=== PATIENT | female | born 1960 | race Caucasian/White ===

== ENCOUNTER 2020-05-20 08:07 | Outpatient (REF) | payer BC, SELFPAY ==
[2020-05-20 10:51] LABS: MANUAL DIFF FLAG NO
[2020-05-20 10:58] LABS: Basophils Percent Auto 0.7 % (0-2); Eosinophils Absolute Auto 0.1 X10*3/uL (0.0-0.4); Eosinophils Percent Auto 2.5 % (0-4); Hematocrit 42.1 % (37-47); Hemoglobin 13.8 g/dl (12.0-16.0); Imm Gran Abs Auto 0.01 X10*3/uL (0.00-0.03); Imm Gran Pct Auto 0.2 % (0.0-0.4); Lymphocytes Absolute Auto 1.9 X10*3/uL (1.2-4.9); Lymphocytes Percent Auto 35.1 % (20-40); Mean Corpuscular HGB Conc 32.8 g/dl (31.0-35.0); Mean Corpuscular Hemoglobin 32.5 pg (27.0-33.0); Mean Corpuscular Volume 99.3 fL (80-98); Mean Platelet Volume 11.1 fL (9.4-12.3); Monocytes Absolute Auto 0.6 X10*3/uL (0.1-1.2); Monocytes Percent Auto 10.7 % (2-11); Neutrophils Absolute Auto 2.8 X10*3/uL (2.0-8.3); Neutrophils Percent Auto 50.8 % (45-73); Platelet Count 264 X10*3/uL (160-400); Red Blood Count 4.24 X10*6/uL (4.20-5.50); Red Cell Distribution Width 13.2 % (11.0-16.0); White Blood Count 5.5 X10*3/uL (4.8-10.8)
[2020-05-20 11:41] LABS: Vitamin D 25-OH Total 49.4 ng/mL (>30)
[2020-05-20 11:42] LABS: Alanine Aminotransferase 22 U/L (0-31); Albumin Level 4.6 g/dL (3.5-5.0); Alkaline Phosphatase 70 U/L (39-117); Anion Gap 16 (12-20); Aspartate Amino Transferase 24 U/L (5-31); Bilirubin Total 0.8 mg/dL (0.0-1.0); Blood Urea Nitrogen 10 mg/dL (9-16); Calcium 9.2 mg/dL (8.4-10.2); Carbon Dioxide 25 mmol/L (22-29); Chloride 104 mmol/L (96-108); Cholesterol 256 mg/dL; Estimated Glomerular Filt Rate > 60; Glucose Fasting 90 mg/dL (60-99); HDL Cholesterol 68 mg/dL; LDL Cholesterol Calculated 163 mg/dl; Potassium 4.5 mmol/L (3.3-5.1); Sodium 140 mmol/L (135-145); Total Protein 7.1 g/dL (6.5-8.0); Triglycerides 127 mg/dL
== END 2020-05-20 08:08 | disposition home or self-care (01) ==
LOC: HO.10HDL 08:07
PROVIDERS: Visit Provider Internal Medicine
DX: E78.00 Pure hypercholesterolemia, unspecified (principal); E55.9 Vitamin D deficiency, unspecified
CPT/HCPCS: 36415; 80053; 80061; 82306; 85025

== ENCOUNTER 2021-05-02 11:17 | Outpatient (REF) | payer BC, SELFPAY ==
[2021-05-02 11:46] LABS: COVID-19 Test Negative (Negative)
== END 2021-05-02 11:18 | disposition home or self-care (01) ==
LOC: HO.LNP 11:17
PROVIDERS: PCP Internal Medicine; Visit Provider Internal Medicine
DX: Z20.822 Contact with and (suspected) exposure to COVID-19 (principal)
CPT/HCPCS: 87635

== ENCOUNTER 2021-05-11 10:21 | Outpatient (REF) | payer BC, SELFPAY ==
[2021-05-11 10:47] LABS: COVID-19 Test Negative (Negative); IDNOW Serial# 55D5AD1C
== END 2021-05-11 10:22 | disposition home or self-care (01) ==
LOC: HO.LNP 10:21
PROVIDERS: PCP Internal Medicine; Visit Provider Internal Medicine
DX: Z20.822 Contact with and (suspected) exposure to COVID-19 (principal)
CPT/HCPCS: 87635

== ENCOUNTER 2021-07-05 08:09 | Day surgery (SDC) | payer BC, SELFPAY ==
[2021-06-30 09:23] VITALS: BMI 24.5
[2021-07-05 08:39] VITALS: BP 132/75; PULSE 72; RESP 16; TEMP 36.7; O2SAT 98; BMI 23.8
--- NOTE | 2021-07-05 08:51 | HO.ANESPROP2 ---
HPI - Anesthesia Eval Consult details Narrative: Screening Colonoscopy [facility] Past Medical History Medical History (Updated 06/30/21 @ 09:11 by Rosie Multani, RN) Elevated cholesterol Low vitamin D level Family History Family history of problems with anesthesia: No Surgical History Surgical History (Updated 06/30/21 @ 09:20 by Rosie Multani, RN) Hx of colonoscopy History of Problems with Anesthesia: No Social History Social History Patient Tobacco Use Status: Never used Tobacco Use of substances other than those prescribed or required for medical reasons: No Advance Directives: No Advance Directives Information Provided: Yes Recently lost weight without trying: No Nutrition Risks: No Nutritional Risk Meds Allergies Allergy/AdvReac Type Severity Reaction Status Date / Time No Known Allergies Allergy Unverified 06/30/21 09:13 Active Medications: Current Medications Acetaminophen (Acetaminophen 325 Mg Tablet) 650 mg PO ONCE PRN PRN Reason: Pain, Mild (Pain Scale 1-3) Ondansetron HCl (Ondansetron Hcl 4 Mg/2 Ml Vial) 4 mg IVPUSH ONCE PRN PRN Reason: Nausea and Vomiting Home Medications Medication Instructions Recorded Confirmed Last Taken Type ascorbic acid (vitamin C) 250 mg 250 mg PO DAILY 06/30/21 06/30/21 Unknown History chewable tablet (Vitamin C) cholecalciferol (vitamin D3) 25 25 mcg PO DAILY 06/30/21 06/30/21 Unknown History mcg (1,000 unit) chewable tablet (Vitamin D3) multivitamin with minerals-folic 1 tab PO DAILY 06/30/21 06/30/21 Unknown History acid 200 mcg chewable tablet (Multivitamin Gummies) rosuvastatin 5 mg tablet 5 mg PO DAILY 06/30/21 06/30/21 Unknown History zinc 50 mg tablet 50 mg PO DAILY 06/30/21 06/30/21 Unknown History Exam Exam Date and Time: July 05, 2021 0851 Height,Weight and Vital Signs: Height 5 ft 7 in Weight 68.946 kg Last Vital Signs Temp 98.0 F 07/05/21 08:39 Pulse 72 07/05/21 08:39 Resp 16 07/05/21 08:39 BP 132/75 07/05/21 08:39 Pulse Ox 98 07/05/21 08:39 Airway Mallampati Class: II TM Dist: >3cm Neck ROM: Full Loose/Missing/Broken Teeth: No (poor dentition) Heart: rrr+s1s2 Lungs: cta b/l Assessment and Plan Assessment Anesthesia Assessment: Anesthesia Plan Discussed and Chart Reviewed Final Anesthetic Review Family History of Problems with Anesthesia: No History of Problems with Anesthesia: No NPO: Yes ASA Class: II Final Preanesthetic Review: No Changes in Pt Med Stat, Meds/Allgs Chart Reviewed, Consent Obtained/Reviewed and Anes Risks/Benef Reviewed Patient Risk: Intermediate Procedure Risk: Low Assessment/Block/Sedation in SS: Assess/Block/Sedation-SS Anesthetic Plan Anesthetic Plan: MAC: and Agree w/ Assess. and Plan Disposition: Standard PACU
--- NOTE | 2021-07-05 09:17 | MHC.SHP ---
Pre-Procedural Eval Section A Date of Service: 07/05/21 Section B Chief Complaint: Screening Details of Present Illness: see H&P no changes Relevant Family History (Specify if Yes): No Relevant Social History: None Present Medications: see Short Stay Collaborative assessment Medical History: No relevant PMH History of Previous Operations: No relevant previous surgery Allergies: Allergies Allergy/AdvReac Type Severity Reaction Status Date / Time No Known Allergies Allergy Unverified 06/30/21 09:13 Review of Systems Sugical H&P ROS: Negative: Constitution, Cardiovascular, Respiratory, Neurological, Psychiatric, Hem-Onc, Allergic/Immunologic, Gastrointestinal, Genitourinary, Musculoskeletal, Integumentary, Endocrine and Eyes/Ears/Nose/Throat Exam Surgical H&P Exam: Normal: HEENT, Normal: Heart, Normal: Lungs, Normal: Extremities, Normal: Abdomen, Normal: Skin and Normal: Neurological Plan Diagnosis/Plan: Unchanged I have reviewed the history and physical and performed a pertinent physical examination on my patient. No changes have occurred unless specified.
--- NOTE | 2021-07-05 09:51 | PM.OP ---
Brief Operative Note Date of Service: 07/05/21 Pre-op diagnosis: screening Post-op diagnosis: same (colon polyp) Procedure: colonoscopy Surgeon: Antoni Chu Anesthesia: MAC Was an Student Affairs Dean used for this Procedure?: No Estimated blood loss (mL): 2 Pathology: other (polyp cecum) Condition: stable Disposition: PACU
[2021-07-05 09:55] VITALS: BP 114/67; PULSE 68; RESP 16; TEMP 37; O2SAT 98
[2021-07-05 10:10] VITALS: BP 129/67; PULSE 65; RESP 16; TEMP 36.1; O2SAT 100
--- NOTE | 2021-07-05 10:22 | OP_ITS ---
SURGEON: Antoni Chu MD INDICATIONS: Colon cancer screening. PREOPERATIVE DIAGNOSIS: POSTOPERATIVE DIAGNOSIS: PROCEDURE PERFORMED: Colonoscopy to the terminal ileum with biopsy. ESTIMATED BLOOD LOSS: COMPLICATIONS: ANESTHESIA: ASSISTANTS: SPECIMENS: MEDICATIONS: Monitored anesthesia care. DESCRIPTION OF PROCEDURE: History and physical were performed. The risks and benefits of the procedure were explained to the patient. Informed consent was obtained. The patient was placed in the left lateral decubitus position. A digital rectal exam was performed and was found to be normal. The Olympus pediatric video colonoscope was introduced into the rectum and advanced to the cecum without difficulty. The cecum was identified by transillumination, palpation, and identification of ileocecal valve. Examination was performed. The scope was removed. She tolerated the procedure well and was taken to recovery area in stable condition. FINDINGS: The terminal ileum was examined and appeared normal. The visualized colonic mucosa was normal. The quality of the prep was good. On the underside of the ileocecal valve was less than 5 mm polyp, which was removed with biopsy forceps. No other polyps were seen. There were few scattered diverticula in the sigmoid. Retroflexed examination showed some small internal hemorrhoids. IMPRESSION: Colon polyp. RECOMMENDATION: Follow up the biopsy results. MD RAJAT Aleman/ANNELL / [id number]
== END 2021-07-05 11:29 | disposition home or self-care (01) ==
PROVIDERS: PCP Internal Medicine; Visit Provider Internal Medicine Gastroenterology
PROC: 0DJD8ZZ Inspection of Lower Intestinal Tract, Via Natural or Artificial Opening Endoscopic (ICD-10-PCS; CPT 45378; principal; 2021-07-05 09:20)
DX: Z12.11 Encounter for screening for malignant neoplasm of colon (principal); D12.0 Benign neoplasm of cecum; K57.30 Diverticulosis of large intestine without perforation or abscess without bleeding; K64.8 Other hemorrhoids; E78.00 Pure hypercholesterolemia, unspecified; E55.9 Vitamin D deficiency, unspecified; Z79.899 Other long term (current) drug therapy
CPT/HCPCS: 45380; 88305

== ENCOUNTER 2022-07-31 08:04 | Outpatient (REF) | payer BC, SELFPAY ==
[2022-07-31 10:57] LABS: MANUAL DIFF FLAG NO
[2022-07-31 11:10] LABS: Basophils Percent Auto 0.6 % (0-2); Eosinophils Absolute Auto 0.2 X10*3/uL (0.0-0.4); Eosinophils Percent Auto 3.7 % (0-4); Hematocrit 43.2 % (37.0-47.0); Hemoglobin 14.1 g/dl (12.0-16.0); Imm Gran Abs Auto 0.01 X10*3/uL (0.00-0.03); Imm Gran Pct Auto 0.2 % (0.0-0.4); Lymphocytes Percent Auto 31.7 % (20-40); Mean Corpuscular HGB Conc 32.6 g/dl (31.0-35.0); Mean Corpuscular Hemoglobin 32.6 pg (27.0-33.0); Mean Platelet Volume 11.4 fL (9.4-12.3); Monocytes Absolute Auto 0.6 X10*3/uL (0.1-1.2); Monocytes Percent Auto 9.5 % (2-11); Neutrophils Absolute Auto 3.4 x10*3/uL (2.0-8.3); Neutrophils Percent Auto 54.3 % (45-73); Platelet Count 256 X10*3/uL (160-400); Red Blood Count 4.32 X10*6/uL (4.20-5.50); Red Cell Distribution Width 13.2 % (11.0-16.0); White Blood Count 6.2 X10*3/uL (4.8-10.8)
[2022-07-31 12:40] LABS: Alanine Aminotransferase 18 U/L (0-31); Albumin Level 4.3 g/dL (3.5-5.0); Alkaline Phosphatase 81 U/L (39-117); Anion Gap 12 (12-20); Aspartate Amino Transferase 19 U/L (5-31); Bilirubin Total 0.9 mg/dL (0.0-1.0); Blood Urea Nitrogen 9 mg/dL (9-16); Calcium 9.4 mg/dL (8.4-10.2); Carbon Dioxide 27 mmol/L (22-29); Chloride 105 mmol/L (96-108); Cholesterol 190 mg/dL; Estimated Glomerular Filt Rate > 60; Glucose Fasting 95 mg/dL (60-99); HDL Cholesterol 72 mg/dL; LDL Cholesterol Calculated 96 mg/dl; Sodium 140 mmol/L (135-145); Total Protein 6.8 g/dL (6.5-8.0); Triglycerides 111 mg/dL
== END 2022-07-31 08:05 | disposition home or self-care (01) ==
LOC: HO.10HDL 08:04
PROVIDERS: Visit Provider Internal Medicine
DX: Z00.00 Encounter for general adult medical examination without abnormal findings (principal)
CPT/HCPCS: 36415; 80053; 80061; 85025

== ENCOUNTER 2022-10-18 14:32 | Outpatient (REF) | payer BC, SELFPAY ==
--- NOTE | ~2022-10-18 | XR_ITS ---
EXAMINATION: XR KNEE, RIGHT CLINICAL INFORMATION: Right knee pain after fall. COMPARISON: None available. TECHNIQUE: Four views of the right knee. FINDINGS: Alignment is anatomic. Mild medial tibiofemoral and patellofemoral joint space narrowing. Tricompartmental osteophytes are present. No displaced fracture. Trace suprapatellar joint effusion. Possible loose bodies and posterior joint space. XR/XR knee RT 4V IMPRESSION: No acute abnormality.
== END 2022-10-18 14:33 | disposition home or self-care (01) ==
LOC: HO.XRAY 14:32
PROVIDERS: PCP Internal Medicine; Visit Provider Internal Medicine
DX: M25.561 Pain in right knee (principal); Z91.81 History of falling
CPT/HCPCS: 73564

== ENCOUNTER 2023-09-27 07:01 | Outpatient (REF) | payer BC, MEDICARE, SELFPAY ==
[2023-09-27 07:12] LABS: MANUAL DIFF FLAG NO
[2023-09-27 07:25] LABS: Basophils Absolute Auto 0.1 X10*3/uL (0.0-0.2); Eosinophils Absolute Auto 0.2 X10*3/uL (0.0-0.4); Eosinophils Percent Auto 2.8 % (0-4); Hematocrit 44.4 % (37.0-47.0); Hemoglobin 14.7 g/dl (12.0-16.0); Imm Gran Abs Auto 0.02 X10*3/uL (0.00-0.03); Imm Gran Pct Auto 0.3 % (0.0-0.4); Lymphocytes Absolute Auto 2.1 X10*3/uL (1.2-4.9); Lymphocytes Percent Auto 34.4 % (20-40); Mean Corpuscular HGB Conc 33.1 g/dl (31.0-35.0); Mean Corpuscular Hemoglobin 32.4 pg (27.0-33.0); Mean Corpuscular Volume 97.8 fL (80.0-98.0); Mean Platelet Volume 10.1 fL (9.4-12.3); Monocytes Absolute Auto 0.7 X10*3/uL (0.1-1.2); Neutrophils Percent Auto 50.5 % (45-73); Platelet Count 270 X10*3/uL (160-400); Red Blood Count 4.54 X10*6/uL (4.20-5.50); Red Cell Distribution Width 13.2 % (11.0-16.0)
[2023-09-27 08:17] LABS: Alanine Aminotransferase 21 U/L (0-31); Albumin Level 4.5 g/dL (3.5-5.0); Alkaline Phosphatase 79 U/L (39-117); Anion Gap 13 (12-20); Aspartate Amino Transferase 23 U/L (5-31); Bilirubin Total 0.8 mg/dL (0.0-1.0); Blood Urea Nitrogen 9 mg/dL (9-16); Calcium 9.7 mg/dL (8.4-10.2); Carbon Dioxide 27 mmol/L (22-29); Chloride 106 mmol/L (96-108); Cholesterol 180 mg/dL (<200); Estimated Glomerular Filt Rate > 60; Glucose Fasting 103 mg/dL (60-99); HDL Cholesterol 73 mg/dL (>40); LDL Cholesterol Calculated 89 mg/dL (<100); Potassium 3.9 mmol/L (3.3-5.1); Sodium 142 mmol/L (135-145); Total Protein 7.4 g/dL (6.5-8.0); Triglycerides 90 mg/dL (<150)
[2023-09-27 08:33] LABS: Vitamin B12 371 pg/mL (200-900)
[2023-09-27 08:35] LABS: Vitamin D 25-OH Total 58.6 ng/mL (>30)
== END 2023-09-27 07:02 | disposition home or self-care (01) ==
LOC: HO.LAB 07:01
PROVIDERS: PCP Internal Medicine; Visit Provider Internal Medicine
DX: E78.00 Pure hypercholesterolemia, unspecified (principal); R07.89 Other chest pain; R53.83 Other fatigue
CPT/HCPCS: 36415; 80053; 80061; 82306; 82550; 82607; 85025

== ENCOUNTER 2023-12-17 13:41 | Outpatient (REF) | payer BC, MEDICARE, SELFPAY ==
--- NOTE | ~2023-12-17 | XR_ITS ---
EXAMINATION: XR HIP, RIGHT CLINICAL INFORMATION: Right hip pain. No injury. COMPARISON: None available. TECHNIQUE: Two views of the right hip. FINDINGS: No displaced fracture or dislocation. Alignment is anatomic. Hip joint space is maintained. Soft tissues are unremarkable. XR/XR hip RT min 2V IMPRESSION: No acute abnormality. Electronically signed by: Jigar Hampton MD 12/17/2023 03:27 PM EDT
== END 2023-12-17 13:42 | disposition home or self-care (01) ==
LOC: HO.XRAY 13:41
PROVIDERS: PCP Internal Medicine; Visit Provider Internal Medicine
DX: M25.551 Pain in right hip (principal)
CPT/HCPCS: 73502

== ENCOUNTER 2024-08-01 09:39 | Outpatient (AMB) | payer MEDICARE, BC, SELFPAY ==
--- NOTE | 2024-08-01 10:03 | MHC.PC.OV ---
Vital Signs 08/01/24 10:04 Height 5 ft 6 in Weight 156 lb BMI 25.2 BP 120/80 Blood Pressure Location Lt brachial Position Sitting Pulse 84 Pulse Source Pulse Oximeter Temp 97.3 F Temp Source Axillary Pulse Oximetry (%) 99 Oxygen Delivery Method Room Air Intake Visit Reasons: Routine Client Manager Required: No Accompanied by: Daughter Allergies No Known Allergies Allergy (Verified 08/01/24 10:07) Tobacco use date assessed: 08/01/24 Fall risk assessment: No Falls in past year Last assessed Fall Risk: 08/01/24 Dental Screening Dental Screen Date: 08/01/24 Did you have a dental visit in the last 12 months?: Yes Did you have a dental problem in the last 6 months where you did not have access to dental care?: No HPI HPI Comments History of Present Illness Details 63 year old female with a past medical history of hld, colon polyps, bunions presenting for follow up.Last saw pcp in march CV: HLD off [place]. Was getting frequent leg cramps Colonoscopy 07/2021-Dr Chu due 2024 to 2025 Mammo 02/2024 ROS see HPI PHYSICAL EXAM: GENERAL: Alert and oriented x 3. NAD EYES: EOMI. Anicteric. HENT: Moist mucous membranes. No scleral icterus. No cervical lymphadenopathy. LUNGS: Clear to auscultation bilaterally. CARDIOVASCULAR: Regular rate and rhythm. No murmur. No JVD. ABDOMEN: Soft, non-tender +bs EXTREMITIES: No edema. Non-tender. SKIN: No rashes or lesions. Warm. NEUROLOGIC: No focal neurological deficits. CN II-XII grossly intact PSYCHIATRIC: Cooperative. Appropriate mood and affect [facility] Medical History Low vitamin D level Elevated cholesterol Surgical History Hx of colonoscopy (~07/05/21) Family History Mother Alzheimer dementia Father Cancer Social History Housing: House Patient Tobacco Use Status: Never used Tobacco e-Cigarette/Vaping Use: Never Used service: No Current occupational status: retired Cognitive needs: No Hearing needs: No Vision needs: Yes (reading glasses) Questionnaire PHQ-9 Over the last 2 weeks, how often have you been bothered by any of the following problems? 1. Little interest or pleasure in doing things: not at all 2. Feeling down, depressed, or hopeless: not at all 3. Trouble falling or staying asleep, or sleeping too much: not at all 4. Feeling tired or having little energy: not at all 5. Poor appetite or overeating: not at all 6. Feeling bad about yourself - or that you are a failure or have let yourself or your family down: not at all 7. Trouble concentrating on things, such as reading the newspaper or watching television: not at all 8. Moving or speaking so slowly that other people could have noticed. Or the opposite - being so fidgety or restless that you have been moving around a lot more than usual: not at all 9. Thoughts that you would be better off or of hurting yourself in some way: not at all Total score: 0 Depression Screening Interpretation: Negative Depression Screening Done: Yes [id number] - PHQ-9 Billing: Yes Source: Developed by Drs. Cristobal Ramsey, Michelle Cordero, Álvaro Todd and colleagues, with an educational emily from [employer]. Thrive Questionnaire Date Thrive assessed: 08/01/24 I am a: Patient Within the past 12 months, did the food you bought not last and you didn't have the money to get more?: Never true Within the past 12 months, did you worry whether your food would run out before you got money to buy more?: Never true Do you have trouble paying for medicines?: No Do you have trouble getting transportation to medical appointments?: No Do you have trouble paying your heating and electricity bill?: No Do you have trouble taking care of your child, family member or friend?: No Do you have trouble with day-to-day activities such as bathing, preparing meals, shopping, managing finances, etc.?: No Are you currently unemployed and looking for a job?: No Are you interested in more education?: No THRIVE Score: 0 AUDIT C Alcohol Use Questionnaire (AUDIT-C) 1. How often do you have a drink containing alcohol?: Monthly or less 2. How many drinks containing alcohol do you have on a typical day when you are drinking?: 1 or 2 3. How often do you have six or more drinks on one occasion?: Less than monthly Total Score: 2 BILLY-7 AMB Questionnaire BILLY-7 Date BILYL - 7 assessed: 08/01/24 Feeling nervous, anxious, or on edge: 0 = Not at all Not being able to stop or control worryin = Not at all Worrying too much about different things: 0 = Not at all Trouble relaxin = Not at all Being so restless that it is hard to sit still: 0 = Not at all Becoming easily annoyed or irritable: 0 = Not at all Feeling afraid as if something awful might happen: 0 = Not at all Total BILLY-7 score (0-4 normal; 5-9 mild; 10-14 moderate; 15-21 severe): 0 Source: Developed by Drs. Cristobal Ramsey, Michelle Cordero, Álvaro Todd and colleagues, with an educational emily from [employer]. Physical exam (Primary Care) Vital Signs: Last Vital Signs Temp 97.3 F 08/01/24 10:04 Pulse 84 08/01/24 10:04 BP 120/80 08/01/24 10:04 Pulse Ox 99 08/01/24 10:04 Oxygen Delivery Method Room Air 08/01/24 10:04 BMI result Body Mass Index 25.2 Tobacco/Smoking Status: Tobacco use Status Tobacco use date assessed 08/01/24 08/01/24 10:12 Patient Tobacco Use Status Never used Tobacco 08/01/24 10:12 e-Cigarette/Vaping Use Never Used 08/01/24 10:12 PHQ-9: PHQ-9 Score PHQ-9: Total score 0 08/01/24 10:14 Depression Screening Interpretation: Negative Thrive Assessment: Date of Thrive Assessment Date Thrive assessed 08/01/24 08/01/24 10:12 Coding Level of Care Code New Pt Level 3 (15750) Complex EM visit Add On G2211 Diagnoses Low vitamin D level R79.89 Hyperlipidemia, unspecified hyperlipidemia type E78.5 Hyperlipidemia type: unspecified Elevated MCV R71.8 Leg cramps R25.2 Elevated glucose R73.09 Additional Codes PHQ-9 - 63674 - PHQ-9 Billing: Yes ([id number]) Assessment & Plan Assessment & Plan (1) Low vitamin D level: Code(s): R79.89 - Other specified abnormal findings of blood chemistry Category: Medical (2) Hyperlipidemia: Code(s): E78.5 - Hyperlipidemia, unspecified Category: Medical Qualifiers: Hyperlipidemia type: unspecified Qualified Code(s): E78.5 - Hyperlipidemia, unspecified (3) Elevated MCV: Code(s): R71.8 - Other abnormality of red blood cells Category: Medical (4) Leg cramps: Code(s): R25.2 - Cramp and spasm Category: Medical (5) Elevated glucose: Code(s): R73.09 - Other abnormal glucose Category: Medical Plan 63 year old female presenting to [facility] Past medical, surgical, social history reviewed HLD-off statin. labs ordered leg cramps-mild intermittent. labs ordered Orders: Orders Vitamin B12 and Folate Today R25.2 - Cramp and spasm IRON PROFILE Today R25.2 - Cramp and spasm Complete Blood Count Auto Diff Today E78.5 - Hyperlipidemia, unspecified, R71.8 - Other abnormality of red blood cells, R73.09 - Other abnormal glucose, Z13.0 - Encounter for screening for diseases of the blood and blood-forming organs and certain disorders involving the immune mechanism Comprehensive Met. Panel Today E78.5 - Hyperlipidemia, unspecified, R71.8 - Other abnormality of red blood cells, R73.09 - Other abnormal glucose, Z13.0 - Encounter for screening for diseases of the blood and blood-forming organs and certain disorders involving the immune mechanism Lipid Panel Today E78.5 - Hyperlipidemia, unspecified, R71.8 - Other abnormality of red blood cells, R73.09 - Other abnormal glucose, Z13.0 - Encounter for screening for diseases of the blood and blood-forming organs and certain disorders involving the immune mechanism TSH reflex Free T4 Today E78.5 - Hyperlipidemia, unspecified, R71.8 - Other abnormality of red blood cells, R73.09 - Other abnormal glucose, Z13.0 - Encounter for screening for diseases of the blood and blood-forming organs and certain disorders involving the immune mechanism Hemoglobin A1c Today E78.5 - Hyperlipidemia, unspecified, R71.8 - Other abnormality of red blood cells, R73.09 - Other abnormal glucose, Z13.0 - Encounter for screening for diseases of the blood and blood-forming organs and certain disorders involving the immune mechanism
[2024-08-01 10:04] VITALS: BP 120/80; PULSE 84; TEMP 36.3; O2SAT 99; BMI 25.2
== END 2024-08-01 10:36 | disposition home or self-care (01) ==
LOC: HO.HMCHD 09:40
PROVIDERS: PCP Internal Medicine; Visit Provider Internal Medicine
DX: R79.89 Other specified abnormal findings of blood chemistry (principal); E78.5 Hyperlipidemia, unspecified; R71.8 Other abnormality of red blood cells; R25.2 Cramp and spasm; R73.09 Other abnormal glucose

== ENCOUNTER → 2024-08-01 09:39 | Outpatient (BNVA) | payer MEDICARE, BC, SELFPAY | PROVIDERS: PCP Internal Medicine; Visit Provider Internal Medicine | DX: E78.5 Hyperlipidemia, unspecified (principal); R79.89 Other specified abnormal findings of blood chemistry; R71.8 Other abnormality of red blood cells; R25.2 Cramp and spasm; R73.09 Other abnormal glucose; Z86.0100 Personal history of colon polyps, unspecified | CPT/HCPCS: 96127; 99202 ==

== ENCOUNTER 2024-11-04 10:52 | Outpatient (AMB) | payer MEDICARE, BC, SELFPAY ==
[2024-11-04 11:20] VITALS: BP 126/70; PULSE 74; TEMP 36.6; O2SAT 96; BMI 25.6
--- NOTE | 2024-11-04 11:20 | AM.OFFWIN_ITS ---
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 - Knee pain began a few weeks ago withou t recent trauma. - Pain is sore, with difficulty walking and tenderness on palpation. - Pain has worsened over time. - Used brace, ice, and topical arnica cr eam; no medication taken until now. - Family history of knee issues; sister required knee surgery. Physical Exam General: Cooperative, healthy appearing, comfortable, no acute distress and well developed Orientation: Patient oriented x3 Limitations: Difficulty walking due to knee soreness Head: Normal to inspection Ears: Hearing grossly normal bilaterally Nose: Normal External nose present Face and sinus: Normal facial exam Eyes: Appearance normal, both eyes and all related structures Neck: Normal visual inspection and Yes full ROM Respiratory: Normal respiratory effort and able to speak in complete sentences. Skin: No rashes or lesions noted Neuro: Patient oriented x3 Extremities: right knee: TTP to medial and lateral joint lines and slight laxity in the joint. Negative patellar ballottement, no posterior knee ttp, no edema, no skin color changes PFSH Medical History Low vitamin D level Elevated cholesterol Surgical History Hx of colonoscopy (~07/05/21) Family History Mother Alzheimer dementia Father Cancer Social History Housing: House Patient Tobacco Use Status: Never used Tobacco e-Cigarette/Vaping Use: Never Used Patient : No service: No Current occupational status: retired Cognitive needs: No Hearing needs: No Vision needs: Yes (reading glasses) Review of Systems Const All systems reviewed & are unremarkable except as noted in HPI and below Physical Exam Vital Signs: Last Vital Signs Temp 97.9 F 11/04/24 11:20 Pulse 74 11/04/24 11:20 BP 126/70 11/04/24 11:20 Pulse Ox 96 11/04/24 11:20 Oxygen Delivery Method Room Air 11/04/24 11:20 BMI result Body Mass Index 25.6 Assessment & Plan Assessment & Plan (1) Right medial knee pain: Code(s): M25.561 - Pain in right knee Plan: Plan - PE concerning for medial or lateral ligament issue. - Start oral diclofenac every 12 hours for three days, then as needed. - Use knee brace, apply ice, and rest. - Continue arnica cream which you have been using - Refer to orthopedics if symptoms persist. - Avoid walking for two weeks or while in pain, to aid healing. - Consider physical therapy if recommended by orthopedics. Patient was informed and verbally consented to the use of an ambient scribe for clinic note documentation during this visit. (2) Pain in lateral portion of right knee: Code(s): M25.561 - Pain in right knee Plan: as above Orders: Referrals Orthopedics Referral M25.561 - Pain in right knee Medications: New diclofenac sodium 50 mg PO Q12H PRN 20 tabs 0RF pain Coding Level of Care Code Est Pt Level 3 (56700) Diagnoses Right medial knee pain M25.561 Pain in lateral portion of right knee M25.561
--- OUTSIDE RECORDS SUMMARY | 2024-11-04 11:37 | XMS_ITS | Patient Health Record ---
Author Organization [facility] Address [address] [place] [id number] Care Team Providers Care Surgical Technology Instructor Name Role Phone Mera (RETIRED) Joaquim SCHAFER Primary Care Provide r Antoni Bojorquez Jr Unavailable [phone] Allergies No Known Allergies Reason For Referral No Information Medications Medication SIG (Take, Route, Frequency, Duration) Notes Start Date End Date Status MiraLax (colon prep) 17 GM/SCOOP mixed with Gatorade or Crystal Light Orally begin at 5:00 p.m. the day before the procedure for 1 day 04/06/2021 Active Rosuvastatin Calcium 5 MG 1 tablet Orall y Once a day for 30 day(s) Active Vitamin C 250 MG 1 tablet Orally Once a day for 30 day(s) Active Vitamin D3 Adult Gummies 25 MCG (1000 UT) 1 tablet Orally Once a day for 30 day(s) Active Zinc 50 MG 1 tablet Orally Once a day for 30 day(s) Active Multivitamin - as directed Orally Active Immunizations Vaccine Route Administration Date Status Comme nts Influenza Unknown 12/22/2020 Administered Social History Tobacco Use: Social History Observation Description Date Details (start date - stop date) Never Smoker NA - NA Tobacco Use/Smoking Question Answer Notes Patient is a nonsmoker Alcohol Screen Question Answer Notes Did you have a drink contain ing alcohol in the past year? Yes How often did you have a dri nk containing alcohol in the past year? 2 to 3 times a week (3 points) How many drinks did you have on a typical day when you were drinking in the past year? 1 or 2 drinks (0 point) How often did you have 6 or more drinks on one occasion in the past year? Never (0 point) Points 3 Interpretation Positive Problems Problem Type SNOMED Code ICD Code Onset Dates Problem Status W/U Status Risk Notes Problem [id number] Colon cancer screening (Z12.11) Active confirmed Problem [id number] Encounter for other preprocedural examination (Z01.818) Active confirmed Plan Of Treatment Future Test Test Name Order Date COLONOSCOPY 04/06/2021 Insurance Providers Payer Name Payer Address Payer Phone Subscriber Number Group Number Insured Name Patient Relationship to Insured Coverage Start Date Coverage End Date [facility] [address] [place] [address] [id number] KEVIN YAN Self - patient is the insured Medical (General) History Medical History History ICD Code Elevated cholesterol Low vitamin D level Surgical History Surgery Date(Month/Year)
== END 2024-11-04 12:08 | disposition home or self-care (01) ==
PROVIDERS: PCP Internal Medicine; Visit Provider Physician Assistant
DX: M25.561 Pain in right knee (principal)

== ENCOUNTER → 2024-11-04 10:52 | Outpatient (BNVA) | payer MEDICARE, BC, SELFPAY | PROVIDERS: PCP Internal Medicine; Visit Provider Physician Assistant | DX: M25.561 Pain in right knee (principal) | CPT/HCPCS: 99212 ==

== ENCOUNTER 2024-11-06 11:47 | Emergency (ER) | payer MEDICARE, BC, SELFPAY ==
--- NOTE | ~2024-11-06 | XR_ITS ---
EXAMINATION: XR KNEE 4 OR MORE VIEWS RIGHT HISTORY: atraumatic pain COMPARISON: Comparison is made with the prior examination dated 10/18/2022. FINDINGS: Four views of the right knee are submitted. Osseous mineralization is normal. There is no fracture or dislocation. There is mild tricompartmental osteoarthritis osteophyte formation. The soft tissues are unremarkable. There is no joint effusion. XR/XR knee RT 4V IMPRESSION: Mild tricompartmental osteoarthritis. Electronically signed by: Cristobal Solares MD 11/06/2024 12:54 PM EDT
--- NOTE | 2024-11-06 11:54 | ED.GENADULT ---
HPI - General Adult General Chief complaint: Extremity Problem Stated complaint: r knee issues Time Seen by Provider: 11/06/24 12:03 Source: patient, RN notes reviewed and old records reviewed Mode of arrival: ambulatory Limitations: no limitations History of Present Illness ED Provider: [facility] narrative: Patient is a 64-year-old female presenting with complaint of atraumatic lateral and medial right knee pain for several weeks. Reports fall in 2022 but had been ok afterwards until a few weeks ago. Seen at urgent care on , pain worse with ambulation. Using a brace, ice, and Penetrex (arnica) cream without relief. Prescribed diclofenac at and referred to ortho. Ambulating independently but reports difficulty walking at times. Was prescribed diclofenac at but only took one. complaint: right knee pain Onset (ago): week(s) Related Data Home Medications ?Medication ?Instructions ?Recorded ?Confirmed cholecalciferol (vitamin D3) 25 25 mcg PO DAILY 06/30/21 06/30/21 mcg (1,000 unit) chewable tablet (Vitamin D3) multivitamin with minerals-folic 1 tab PO DAILY 06/30/21 06/30/21 acid 200 mcg chewable tablet (Multivitamin Gummies) zinc 50 mg tablet 50 mg PO DAILY 06/30/21 06/30/21 Previous Rx's ?Medication ?Instructions ?Recorded diclofenac sodium 50 mg 50 mg PO Q12H PRN pain #20 tabs 11/04/24 tablet,delayed release Allergies Allergy/AdvReac Type Severity Reaction Status Date / Time No Known Allergies Allergy Verified 11/06/24 11:56 Review of Systems Review of Systems: as per hpi Yes all other systems are reviewed and are negative Constitutional: Constitutional: Reports as per HPI [facility] Past Medical History Medical History Low vitamin D level Elevated cholesterol Surgical History Hx of colonoscopy (~07/05/21) Family History Family History Mother Alzheimer dementia Father Cancer Social History Social History Housing: House Patient Tobacco Use Status: Never used Tobacco e-Cigarette/Vaping Use: Never Used service: No Current occupational status: retired Cognitive needs: No Hearing needs: No Vision needs: Yes (reading glasses) Physical Exam ED Vital Signs: Vital Signs - 24 hr 11/06/24 11:56 Temperature 97.7 F Pulse Rate 90 Respiratory Rate 16 Blood Pressure 147/68 H Pulse Oximetry 98 Oxygen Delivery Method Room Air BMI result Body Mass Index 24.7 Vital signs have been reviewed and appear to be correct. Blood pressure normal. Heart rate normal. Respiratory rate normal. Temperature normal. Oxygen saturation normal. Const General: cooperative, healthy appearing and no acute distress Orientation/consciousness: oriented to person, oriented to place, oriented to time and patient oriented x3 Limitations: no limitations HENMT Head: Yes normocephalic and Yes atraumatic Ears: external ears normal General nose exam: Normal external nose present Face and sinus: Yes face symmetric Mouth: oropharynx normal and moist mucous membranes Throat: Yes uvula midline Eyes Pupils: Equal, round and reactive pupils present Neck Neck: Yes normal visual inspection and Yes supple Resp Effort & Inspection: normal respiratory effort and able to speak in complete sentences Auscultation: clear to auscultation bilaterally Cardio Rate: regular rate Rhythm: regular rhythm Heart sounds: S1 normal heart sound present and S2 normal heart sound present GI Palpation (GI): Soft to palpation and nontender Auscultation: normoactive bowel sounds General: Yes no CVA tenderness Back/Spine/Pelvis Back: no CVA tenderness Skin General skin exam: elasticity normal and turgor normal Neuro General: oriented to person, oriented to place, oriented to time, patient oriented x3, moves all extremities, no focal motor deficits and CN's II-XI intact bilaterally Cranial nerves: Yes Equal, round and reactive pupils present Cognition (Neuro): normal cognition Extrem General: Yes full ROM, Yes no pedal edema and Yes no calf tenderness Right lower extremity: knee Details: normal to inspection, tenderness Location: of the medial joint line and of the lateral joint line, normal ROM and knee ligament exam normal; no swelling, no ecchymosis and no unusual warmth Psych Mental Status: mental status grossly normal Affect: normal affect Thought process: Normal thought process present Course Course Course Narrative: This is a rapid medical exam performed by Raad Velasco NP: Additional HPI, ROS, PE not included below will be deferred to primary provider. Patient is a 64-year-old female presenting with complaint of atraumatic lateral and medial right knee pain for several weeks. Seen at urgent care on , pain worse with ambulation. Using a brace, ice, and Penetrex (arnica) cream without relief. Prescribed diclofenac at and referred to ortho. Ambulating independently but reports difficulty walking at times. Plan: xray Medical Decision Making Medical Decision Making [facility] Narrative: Patient is a 64-year-old female presenting with complaint of atraumatic lateral and medial right knee pain for several weeks. On exam patient is awake, A+Ox3, VS WNL, afebrile, normal neurological exam without focal deficits, physical exam findings as above. Given reported symptoms and physical exam findings, initial differential includes but is not limited to osteoarthritis, strain, sprain, effusion. Unlikely acute fracture. States she received a call from the ortho office while in the waiting room, cannot be seen until December. X-ray right knee notable for mild osteoarthritis. My interpretation is in agreement with the radiologist's interpretation. Results discussed with patient and all questions answered. Encouraged patient to use the diclofenac prescribed to her at urgent care. Also advised to keep follow-up appointment with Orthopedics since December. Return precautions discussed. Patient verbalized understanding of and agreement with plan. Differential Diagnosis Differential Diagnoses: The differential diagnosis associated with the presentation includes as per [facility] Admission/Observation Consideration of admission/observation: Escalation of care including admission/observation considered Patient would have been admitted to the hospital had their clinical presentation warranted hospital admission. Independent Interpretation I performed an independent interpretation of an: Plain X-Ray Interpretation: Mild osteoarthritis of right knee on xray. Radiology Impression Discussion of test interpretation with radiology: I have reviewed the radiologist's reading. Radiologist Impression: XR/XR knee RT 4V IMPRESSION: Mild tricompartmental osteoarthritis. External Record Review External record reviewed: Inpatient record, Office record and Outpatient record Discharge Plan Discharge Clinical Impression: Osteoarthritis of right knee Qualifiers: Osteoarthritis type: unspecified Qualified Code(s): M17.11 - Unilateral primary osteoarthritis, right knee Patient Disposition: Home, Self-Care Instructions: Osteoarthritis (DC) Additional Instructions: You were evaluated in the emergency department today for right knee pain. Your x-ray showed mild osteoarthritis. We recommend that you use the diclofenac prescribed to you at urgent care, as well as ice, elevation. Keep your follow-up appointment with Orthopedics. Return to the emergency department if you develop redness, swelling, fever, or any other new or concerning symptoms. Prescriptions: No Action cholecalciferol (vitamin D3) [Vitamin D3] 25 mcg (1,000 unit) Tablet,Chewable 25 mcg PO DAILY Multivitamin Gummies 200 mcg Tablet,Chewable 1 tab PO DAILY zinc 50 mg Tablet 50 mg PO DAILY diclofenac sodium 50 mg tablet,delayed release (DR/EC) 50 mg PO Q12H PRN (Reason: pain) Qty: 20 0RF Print Language: Japanese
[2024-11-06 11:56] VITALS: BP 147/68; PULSE 90; RESP 16; TEMP 36.5; O2SAT 98; BMI 24.7
--- OUTSIDE RECORDS SUMMARY | 2024-11-06 13:37 | XMS_ITS | Patient Health Record ---
Author Organization [facility] Address [address] [place] [id number] Care Team Providers Care Embroiderer Name Role Phone Mera (RETIRED) Joaquim SCHAFER Primary Care Provide r Antoni Bojorquez Jr Unavailable [phone] Allergies No Known Allergies Reason For Referral [...] Problem Status W/U Status Risk Notes Problem [id number] Colon cancer screening (Z12.11) Active confirmed Problem [id number] Encounter for other preprocedural examination (Z01.818) Active confirmed Plan Of Treatment Future Test Test Name Order Date COLONOSCOPY 04/06/2021 Insurance Providers Payer Name Payer Address Payer Phone Subscriber Number Group Number Insured Name Patient Relationship to Insured Coverage Start Date Coverage End Date [facility] [address] [place] [address] [id number] KEVIN YAN Self - patient is the insured Medical (General) History Medical History History ICD Code Elevated cholesterol Low vitamin D level Surgical History Surgery Date(Month/Year)
[2024-11-06 13:44] VITALS: BP 147/68; PULSE 90; RESP 16; TEMP 36.5; O2SAT 98
== END 2024-11-06 13:44 | disposition home or self-care (01) ==
PROVIDERS: Emergency Provider Emergency Medicine; PCP Internal Medicine
DX: M17.11 Unilateral primary osteoarthritis, right knee (principal)
CPT/HCPCS: 73564; 99282; 99283

== ENCOUNTER → 2024-11-06 11:58 | Outpatient (BNV) | payer MEDICARE, BC, SELFPAY | PROVIDERS: Emergency Provider Emergency Medicine; PCP Internal Medicine; Visit Provider Radiology Diagnostic Radiology | DX: M25.561 Pain in right knee (principal) | CPT/HCPCS: 73564 ==

== ENCOUNTER 2025-01-14 07:41 | Outpatient (AMB) | payer MEDICARE, BC, SELFPAY ==
--- OUTSIDE RECORDS SUMMARY | 2025-01-14 07:45 | XMS_ITS | Patient Health Record ---
Author Organization [facility] Address [address] [place] [id number] Care Team Providers Care Structural Test Engineer Name Role Phone Mera (RETIRED) Joaquim SCHAFER Primary Care Provide r Antoni Bojorquez Jr Unavailable Allergies No Known Allergies Reason For Referral No Information Medications Medication SIG (Take, Route, Frequency, Duration) Notes Start Date End Date Status MiraLax (colon prep) 17 GM/SCOOP mixed with Gatorade or Crystal Light Orally begin at 5:00 p.m. the day before the procedure; Duration: 1 day 04/06/2021 Active Rosuvastatin Calcium 5 MG 1 tablet Orall y Once a day; Duration: 30 day(s) Active Vitamin C 250 MG 1 tablet Orally Once a day; Duration: 30 day(s) Active Vitamin D3 Adult Gummies 25 MCG (1000 UT) 1 tablet Orally Once a day; Duration: 30 day(s) Active Zinc 50 MG 1 tablet Orally Once a day; Duration: 30 day(s) Active Multivitamin - as directed [...] Problem Status W/U Status Risk Notes Problem Colon cancer screening (638323200) Colon cancer screening (Z12.11) Active confirmed Problem Pre-procedure evaluation check (148457318) Encounter for other preprocedural examination (Z01.818) Active confirmed Plan Of Treatment Future Test Test Name Order Date COLONOSCOPY 04/06/2021 Insurance Providers Payer Name Payer Address Payer Phone Subscriber Number Group Number Insured Name Patient Relationship to Insured Coverage Start Date Coverage End Date [facility] [address] [place] [address] [id number] KEVIN YAN Self - patient is the insured Medical (General) History Medical History History ICD Code Elevated cholesterol Low vitamin D level Surgical History Surgery Date(Month/Year)
--- NOTE | 2025-01-14 07:52 | MHC.OFFVIS ---
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 Patient reports having pain for a couple months. She has tried topical creams and a knee brace with mild relief. Not interested in injections. The patient states that she did aggravate her knee approximately 2 years ago when she tripped and fell. Allergies No Known Allergies Allergy (Verified 01/14/25 07:57) Medication List - Last Reconciled 01/14/25 by Harish Naylor MD cholecalciferol (vitamin D3) (Vitamin D3) 25 mcg PO DAILY diclofenac sodium 50 mg PO Q12H PRN multivit with min-folic acid 200 mcg (Multivitamin Gummies) 1 tab PO DAILY zinc 50 mg PO DAILY PFSH Medical History Low vitamin D level Elevated cholesterol Surgical History Hx of colonoscopy (~07/05/21) Family History Mother Alzheimer dementia Father Cancer Social History Housing: House Patient Tobacco Use Status: Never used Tobacco e-Cigarette/Vaping Use: Never Used service: No Current occupational status: retired Cognitive needs: No Hearing needs: No Vision needs: Yes (reading glasses) Physical Exam Const Other: Well-nourished well-developed very friendly female awake alert and oriented x3 in no acute distress Extrem Other: Right knee examination shows a minimal effusion, mild crepitus with range of motion, negative Shane's test, no instability Results Reviewed Results Reviewed: X-rays of the patient's right knee show mild degenerative changes, no acute bony abnormalities Assessment & Plan Assessment & Plan (1) Right knee pain: Code(s): M25.561 - Pain in right knee Category: Medical Plan Ms. Alvarez presents with intermittent right knee pain due to early degenerative joint disease. I had a lengthy discussion with the patient regarding the treatment options. At this point the patient's symptoms are tolerable to her. We will hold off on an injection. She will continue with her activity modifications. She will follow up with me on an as-needed basis should her symptoms worsen in any way. Feel free to call me at any time should questions regarding her orthopedic management arise. I spent 20 minutes in reviewing the patient's records and imaging studies, seeing the patient and documenting in the medical record. Coding Level of Care Code New Pt Level 3 (69368) Complex EM visit Add On G2211 Diagnoses Right knee pain M25.561
== END 2025-01-14 08:10 | disposition home or self-care (01) ==
LOC: HO.HOS 07:41
PROVIDERS: PCP Internal Medicine; Visit Provider Orthopaedic Surgery
DX: M25.561 Pain in right knee (principal)
CPT/HCPCS: 99203; G2211

== ENCOUNTER → 2025-01-14 07:41 | Outpatient (BNVA) | payer MEDICARE, BC, SELFPAY | PROVIDERS: PCP Internal Medicine; Visit Provider Orthopaedic Surgery | DX: M25.561 Pain in right knee (principal) | CPT/HCPCS: 99202 ==

== ENCOUNTER 2025-02-12 07:03 | Outpatient (REF) | payer MEDICARE, BC, SELFPAY ==
--- OUTSIDE RECORDS SUMMARY | 2025-02-12 07:07 | XMS_ITS | Patient Health Record ---
Author Organization [facility] Address [address] [place] [phone] Care Team Providers Care Embedded Systems Engineer Name Role Phone Mera (RETIRED) Joaquim SCHAFER Primary Care Provide r Antoni Bojorquez Jr Unavailable [phone] Allergies No Known Allergies Reason For [...] Status Risk Notes Problem Colon cancer screening (086364768) Colon cancer screening (Z12.11) Active confirmed Problem Pre-procedure evaluation check (270123155) Encounter for other preprocedural examination (Z01.818) Active confirmed Plan Of Treatment Future Test Test Name Order Date COLONOSCOPY 04/06/2021 Insurance Providers Payer Name Payer Address Payer Phone Subscriber Number Group Number Insured Name Patient Relationship to Insured Coverage Start Date Coverage End Date [facility] [address] [place] [address] [id number] KEVIN YAN Self - patient is the insured Medical (General) History Medical History History ICD Code Elevated cholesterol Low vitamin D level Surgical History Surgery Date(Month/Year)
[2025-02-12 07:19] LABS: MANUAL DIFF FLAG NO
[2025-02-12 07:49] LABS: Hematocrit 44.8 % (37.0-47.0); Hemoglobin 14.5 g/dl (12.0-16.0); Imm Gran Abs Auto 0.03 X10*3/uL (0.00-0.03); Imm Gran Pct Auto 0.5 % (0.0-0.4); Lymphocytes Absolute Auto 1.7 X10*3/uL (1.2-4.9); Mean Corpuscular HGB Conc 32.4 g/dl (31.0-35.0); Mean Corpuscular Hemoglobin 31.9 pg (27.0-33.0); Mean Corpuscular Volume 98.5 fL (80.0-98.0); NRBC Abs Auto 0.000 X10*3/uL (0.0-0.012); NRBC Pct Auto 0.0 /100WBC (0.0-0.2); Platelet Count 283 X10*3/uL (160-400); Red Blood Count 4.55 X10*6/uL (4.20-5.50); White Blood Count 6.0 X10*3/uL (4.8-10.8)
[2025-02-12 08:10] LABS: Anion Gap 12 (12-20); Blood Urea Nitrogen 11 mg/dL (9-16); Calcium 9.5 mg/dL (8.4-10.2); Carbon Dioxide 26 mmol/L (22-29); Chloride 107 mmol/L (96-108); Estimated Glomerular Filt Rate > 60; Iron 162 mcg/dL (30-160); Percent Iron Saturation 53 % (15-50); Potassium 4.3 mmol/L (3.3-5.1); Sodium 141 mmol/L (135-145); Total Iron Binding Capacity 306 mcg/dL (228-428); Unsaturated Iron Binding 144 ug/dL
[2025-02-12 08:11] LABS: Alanine Aminotransferase 25 U/L (0-31); Albumin Level 4.7 g/dL (3.5-5.0); Alkaline Phosphatase 81 U/L (39-117); Aspartate Amino Transferase 28 U/L (5-31); Cholesterol 271 mg/dL (<200); HDL Cholesterol 81 mg/dL (>40); Total Protein 7.6 g/dL (6.5-8.0); Triglycerides 156 mg/dL (<150)
[2025-02-12 08:37] LABS: Folate 12.7 ng/mL (> or = 4.0); Vitamin B12 392 pg/mL (200-900)
[2025-02-12 09:50] LABS: Free T4 (Free Thyroxine) 1.04 ng/dL (0.71-1.85)
== END 2025-02-12 07:04 | disposition home or self-care (01) ==
LOC: HO.LAB 07:03
PROVIDERS: PCP Internal Medicine; Visit Provider Internal Medicine
DX: Z13.0 Encounter for screening for diseases of the blood and blood-forming organs and certain disorders involving the immune mechanism (principal); R71.8 Other abnormality of red blood cells; E78.5 Hyperlipidemia, unspecified; R73.09 Other abnormal glucose; R25.2 Cramp and spasm
CPT/HCPCS: 36415; 80053; 80061; 82607; 82746; 83036; 83540; 84439; 84443; 85025